=== PATIENT | male | born 1980 | race Caucasian/White ===

== ENCOUNTER 2017-12-17 10:04 | Emergency (ER) | payer OTHER ==
[2017-12-17 10:09] VITALS: BP 150/105; PULSE 77; TEMP 98.6; BMI 27.5
[2017-12-17] MEDS ORDERED: DIPHTH,PERTUSS(ACELL),TET 0.5 ML DISP.SYRIN IM ONE (10:41)
[2017-12-17] MEDS ORDERED: AMOX TR/POT CLAV 875MG/125MG TABLETS (FP) PO ONE (10:41)
--- NOTE | 2017-12-17 10:44 | PDOC ---
History of Present Illness - General Chief Complaint: Bite Stated Complaint: [employer] INJURY/EXPOSURE Time Seen by Provider: 12/17/17 10:29 - History of Present Illness Initial Comments: 37-year-old male presents for evaluation of dog bite to the right thigh. He states during an arrest the police dog bit him on the right thigh. There is no medical comorbidities no ALLERGIES to medication he is unsure of his tetanus status. The please dog is fully vaccinated 12/17/17 10:42 Past History - Past Medical History Allergies/Adverse Reactions: Allergies Allergy/AdvReac Type Severity Reaction Status Date / Time No Known Allergies Allergy Verified 12/17/17 10:05 Home Medications: Ambulatory Orders No Home Medications 0 dose .ROUTE UTDICT 07/11/12 Amox-Tr/K Cl [Augmentin - 875Mg Tablet] 1 tab PO BID #20 tablet 12/17/17 COPD: No DVT: No - Immunization History Td Vaccination: (within 3 years) Immunization Up to Date: Yes - Suicide/Smoking/Psychosocial Hx Smoking Status: No Smoking History: Never smoked Number of Cigarettes Smoked Daily: 0 Information on smoking cessation initiated: No Hx Alcohol Use: No Drug/Substance Use Hx: No Substance Use Type: None Review of Systems - Review of Systems Musculoskeletal: Yes: See HPI All Other Systems: Reviewed and Negative *Physical Exam - Vital Signs Last Vital Signs Temp Pulse Resp BP Pulse Ox 98.6 F 77 18 150/105 100 12/17/17 10:06 12/17/17 10:06 12/17/17 10:06 12/17/17 10:06 12/17/17 10:06 - Physical Exam Comments: There are 2 puncture wounds on the medial aspect of the distal right thigh and 2 puncture wounds on the lateral aspect of the distal right thigh. There is no visualized foreign body or tooth. No gross sensorimotor deficits neurovascular intact. 12/17/17 10:43 ED Treatment Course - LABORATORY CBC & Chemistry Diagram: 12/17/17 11:00 12/17/17 11:00 - RADIOLOGY Radiology Studies Ordered: Category Date Time Status KNEE 2 POS-RIGHT [RAD] Stat Radiology 12/17/17 10:34 Ordered Medical Decision Making - Medical Decision Making The wound was copiously irrigated and wet to dry sterile dressing was placed. I will have him follow-up with his primary care physician. 12/17/17 10:44 12/17/17 10:51 Of note, he police dog that bit the officer. A suspect who is in custody the dog bit the patient with a bloody mouth. I've discussed this situation with our attending. Postexposure prophylaxis is a viable option at this point I discussed this with the patient and he would like to start postexposure prophylaxis. 12/17/17 10:58 X-ray was reviewed there is no radial opaque foreign body. 12/17/17 11:20 *DC/Admit/Observation/Transfer Diagnosis at time of Disposition: Dog bite, Patient exposure to body fluids - Discharge Dispostion Disposition: HOME Condition at time of disposition: Stable Decision to Admit order: No - Prescriptions Prescriptions: Amox-Tr/K Cl [Augmentin - 875Mg Tablet] 1 tab PO BID #20 tablet - Referrals Referrals: Caleb Gambino [Non Staff, Medical] - Lincoln Brink NP [Nurse Practitioner] - Maryanne Beaulieu NP [Nurse Practitioner] - Sigrid Tyson MD [Staff Physician] - - Patient Instructions Printed Discharge Instructions: DI for Animal Bites, DI for Accidental Exposure to Body Fluids Additional Instructions: It's extremely important for you take the medications as directed. In addition to the HIV prophylactic medication you've received I've called in an antibiotic for infection from the dog bite. You have a full course of one of the medications and the other medication your given is half the course you need to follow-up at the [facility] for the remaining second part of your treatment. You can discontinue the treatment under the supervision of the [facility] if there is a negative HIV test from the source suspect that was bitten by the police dog prior to the dog biting you. There is a potential for septic knee joint after the dog bite. It's important to monitor you need for increased pain redness swelling and stiffness. If any one of those symptoms starts to present itself it's urgent that you return to the emergency room as soon as possible. Septic joint or treated operatively as well as with IV antibiotics. Again follow-up with the [facility] for the remaining course of your HIV prophylactic treatment. As well as orthopedic surgery for monitoring your wound. Wound care you were given supplies here to do wet-to-dry dressing changes twice a day. This was demonstrated to you in the emergency room. Return to the emergency room if your symptoms worsen or go unresolved prior to follow-up with orthopedic surgery or the [facility]. - Post Discharge Activity
[2017-12-17] MEDS ORDERED: AMOX TR/POT CLAV 875MG/125MG TABLETS (FP) ONE (10:53)
[2017-12-17] MEDS ORDERED: HIV POST EXPOSURE PROPHYLAXIS KIT NR ONE (10:54)
[2017-12-17] MEDS ORDERED: HIV POST EXPOSURE PROPHYLAXIS KIT PO ONE (11:21)
[2017-12-17 11:22] LABS: BASO % 0.9 % (0-2.0); EOS % 2.1 % (0-4.5); HEMATOCRIT 46.9 % (35.4-49); HEMOGLOBIN 15.9 GM/dL (11.7-16.9); LYMPH % 26.8 % (8-40); MCH 31.7 pg (25.7-33.7); MEAN CELL VOLUME 93.3 fl (80-96); MEAN PLT VOLUME 9.6 fl (7.5-11.1); MONO % 9.3 % (3.8-10.2); NEUT % 60.9 % (42.8-82.8); PLATELET COUNT 224 K/MM3 (134-434); RBC 5.03 M/mm3 (4.00-5.60); RDW 12.6 % (11.9-15.9); WHITE BLOOD COUNT 7.4 K/mm3 (4.0-10.0)
[2017-12-17 12:07] LABS: ALBUMIN 4.5 g/dl (3.4-5.0); ANION GAP 8 (8-16); BLOOD UREA NITROGEN 18 mg/dL (7-18); CALCIUM 9.1 mg/dL (8.5-10.1); CHLORIDE 104 mmol/L (98-107); CHOLESTEROL 216 mg/dL (50-200); CO2 27 mmol/L (21-32); CREATININE 0.9 mg/dL (0.7-1.3); GAMMA GLUTAMYL TRANSPEPTIDASE 23 U/L (5-85); GLUCOSE,RANDOM 90 mg/dL (74-106); PHOSPHOROUS 3.7 mg/dL (2.5-4.9); POTASSIUM 4.5 mmol/L (3.5-5.1); SGOT/AST 20 U/L (15-37); SGPT/ALT 23 U/L (12-78); SODIUM 139 mmol/L (136-145); URIC ACID 6.8 mg/dL (2.6-7.2)
[2017-12-17 12:09] LABS: ALK PHOS 69 U/L (45-117); BILIRUBIN,TOTAL 0.5 mg/dL (0.2-1.0); LDH 145 U/L (87-241); TRIGLYCERIDES 100 mg/dL (35-160)
[2017-12-18 06:10] LABS: HBsAG SCREEN Negative (Negative); HEPATITIS B CORE ANTIBODY Negative (Negative)
== END 2017-12-17 11:58 | disposition home or self-care (01) ==
LOC: JERFT 10:04
DX: S71.151A Open bite, right thigh, initial encounter (principal); W54.0XXA Bitten by dog, initial encounter; Y93.89 Activity, other specified; Y92.89 Other specified places as the place of occurrence of the external cause; Y99.0 Civilian activity done for income or pay
CPT/HCPCS: 36415; 73560-TC-RT-FY; 80053; 82465; 82977; 83615; 84100; 84478; 84550; 85025; 86704; 87340; 87389; 90715; 99281-25